=== PATIENT | female | born 1990 | race Caucasian/White ===

== ENCOUNTER 2018-07-27 17:31 | Emergency (ER) | payer SELFPAY ==
[2018-07-27 18:01] VITALS: BP 106/72
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
--- NOTE | 2018-07-28 14:39 | UC ---
- Progress Note Progress Note: RADIOLOGY REPORT REVIEWED. NO ACUTE OSSEOUS INJURY. NO CHANGE IN MGMT. Course/Dx - Diagnoses Provider Diagnoses: Strain of wrist, bilateral, Arthralgia of left acromioclavicular joint Discharge - Sign-Out/Discharge Documenting (check all that apply): Post-Discharge Follow Up All imaging exams completed and their final reports reviewed: Yes - Discharge Plan Condition: Stable Disposition: HOME Patient Education Materials: Sprain (ED), Wrist Sprain (ED) Referrals: Jonathan Rubio MD [Primary Care Provider] - 1 Week (recheck in 1-2 weeks if not better) Additional Instructions: I don't think your injuries are serious enough to warrant using a sling or splints ice twice daily advil if needed official XR report pending - Billing Disposition and Condition Condition: STABLE Disposition: Home
== END 2018-07-27 19:25 | disposition home or self-care (01) ==
LOC: UCEAST 17:31
DX: S66.912A Strain of unspecified muscle, fascia and tendon at wrist and hand level, left hand, initial encounter (principal); S66.911A Strain of unspecified muscle, fascia and tendon at wrist and hand level, right hand, initial encounter; M25.512 Pain in left shoulder; Z88.5 Allergy status to narcotic agent; V79.59XA Passenger on bus injured in collision with other motor vehicles in traffic accident, initial encounter; Y92.9 Unspecified place or not applicable
CPT/HCPCS: 99211; G0463